=== PATIENT | female | born 1965 | race African-American/Black ===

== ENCOUNTER 2019-04-02 10:53 | Emergency (ER) | payer MEDICAID ==
[~2019-04-02] VITALS: Ht 162.6 cm; Wt 75.0 kg
[~2019-04-02 10:53] MED LIST: HYDR-4383 PO
[2019-04-02 11:55] VITALS: BP 115/59
== END 2019-04-02 12:30 | disposition home or self-care (01) ==
LOC: ER 10:54
DX: R59.1 Generalized enlarged lymph nodes (principal); L02.415 Cutaneous abscess of right lower limb; F17.210 Nicotine dependence, cigarettes, uncomplicated; F12.90 Cannabis use, unspecified, uncomplicated; Z79.899 Other long term (current) drug therapy; Z90.710 Acquired absence of both cervix and uterus
CPT/HCPCS: 99281